=== PATIENT | female | born 1990 | race Hispanic/Latino ===

== ENCOUNTER 2017-05-24 05:42 | Emergency (ER) | payer BC ==
--- NOTE | 2017-05-24 06:23 | ED PDOC ---
HPI: Allergic Reaction Time Seen by Provider: 05/24/17 06:01 Chief Complaint (Nursing): Allergic Reaction Chief Complaint (Provider): Allergic reaction History Per: Patient History/Exam Limitations: no limitations Onset/Duration Of Symptoms: Mins Current Symptoms Are (Timing): Gone Now Context: Food Possible Cause: Food Associated Symptoms: Other (sensations in mouth) Home/EMS Treatment: Epi-pen Additional Complaint(s): The pt is a 27yo female, no known PMHX, presents to the ED for evaluation s/p and episode of a mild allergic reaction that occurred prior to arrival. 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 Pt states these initial symptoms were similar to her past allergic reaction so she used an epi- pen prior to arrival. Pt reports her symptoms were resolved after the use of epi -pen and denies any associated tongue or throat swelling, chest pain, shortness of breath. Pt offers no additional medical complaints. Past Medical History Reviewed: Historical Data, Nursing Documentation, Vital Signs Vital Signs: Last Vital Signs Temp 98.7 F 05/24/17 05:50 Pulse 75 05/24/17 05:50 Resp 17 05/24/17 05:50 BP 119/56 L 05/24/17 05:50 Pulse Ox 98 05/24/17 05:50 - Medical History PMH: No Chronic Diseases - Surgical History Surgical History: No Surg Hx - Family History Family History: States: No Known Family Hx - Social History Current smoker - smoking cessation education provided: No Alcohol: None Drugs: Denies - Home Medications Home Medications: Ambulatory Orders Medication Instructions Recorded Epinephrine HCl [Epipen 0.3 mg MR PRN PRN #1 unit 05/24/17 Auto-Injector] predniSONE [Prednisone] 40 mg PO DAILY #8 tab 05/24/17 - Allergies Allergies/Adverse Reactions: Allergies Allergy/AdvReac Type Severity Reaction Status Date / Time nut - unspecified Allergy ANGIOEDEMA Verified 05/24/17 07:31 [place] nut Allergy ANAPHYLAXIS Uncoded 05/24/17 07:34 Review of Systems ROS Statement: Except As Marked, All Systems Reviewed And Found Negative ENT: Positive for: Other (irritation in mouth and tongue due to a mild allergic reaction). Negative for: Mouth Swelling, Throat Swelling Cardiovascular: Negative for: Chest Pain Respiratory: Negative for: Shortness of Breath Skin: Negative for: Rash Physical Exam - Reviewed Nursing Documentation Reviewed: Yes Vital Signs Reviewed: Yes - Physical Exam Appears: Positive for: Non-toxic, No Acute Distress Head Exam: Positive for: ATRAUMATIC, NORMAL INSPECTION, NORMOCEPHALIC Skin: Positive for: Normal Color, Warm, Dry. Negative for: Rash Eye Exam: Positive for: Normal appearance, EOMI, PERRL ENT: Positive for: Normal ENT Inspection Neck: Positive for: Normal, Supple Cardiovascular/Chest: Positive for: Regular Rate, Rhythm Respiratory: Positive for: Normal Breath Sounds. Negative for: Accessory Muscle Use, Respiratory Distress Neurologic/Psych: Positive for: Alert, Oriented. Negative for: Motor/Sensory Deficits - ECG O2 Sat by Pulse Oximetry: 98 (RA) Pulse Ox Interpretation: Normal Disposition - Clinical Impression Clinical Impression: Allergic reaction - Patient ED Disposition Is Patient to be Admitted: Transfer of Care - Disposition Disposition: Transfer of Care Disposition Time: 07:00 Condition: IMPROVED Additional Instructions: follow up with your primary doctor in 1-2 days take benadryl ever 6 hours as needed return to the ED with any worsening or concerning symptoms Prescriptions: Epinephrine HCl [Epipen Auto-Injector] 0.3 mg MR PRN PRN #1 unit PRN Reason: Anaphylaxis predniSONE [Prednisone] 40 mg PO DAILY #8 tab Instructions: Food Allergy (ED), General Allergic Reaction (ED) Forms: [employer] (Sammarinese) Patient Signed Over To: Samantha Chung Y Handoff Comments: Pending re-evaluation and final disposition. Medical Decision Making Medical Decision Making: Time: 05 Impression: Mild allergic reaction without angioedema or anaphylactic shock Plan: -- Benadryl 25 mg PO -- Pepcid 20 mg PO -- Prednisone 60 mg PO --Reassess Time: 07 Patient to be signed out to Dr. Chung pending re-evaluation and final disposition. Scribe Attestation: Documented by Blanquita Hdez acting as a scribe for Юлия Barajas MD Provider Scribe Attestation: All medical record entries made by the Scribe were at my direction and personally dictated by me. I have reviewed the chart and agree that the record accurately reflects my personal performance of the history, physical exam, medical decision making, and the department course for this patient. I have also personally directed, reviewed, and agree with the discharge instructions and disposition.
[2017-05-24 06:26] VITALS: BP 119/56; PULSE 75; RESP 17; TEMP 98.7; O2SAT 98
--- NOTE | 2017-05-24 07:14 | ED PDOC ---
- ECG O2 Sat by Pulse Oximetry: 98 (RA) Pulse Ox Interpretation: Normal Medical Decision Making Medical Decision Makin:00 Patient signed out to me by Юлия Barajas MD pending reevaluation and final disposition. 10:28 reevaluation Patient states he is feeling better and symptoms resolved. Patient is ready for discharge. pt denies sob or rash dx allergic reaction rx prednisone epipen benadrul Scribe Attestation: Documented by Anaya Wilson, acting as a scribe for Juliet Singh MD. Provider Scribe Attestation: All medical record entries made by the Scribe were at my direction and personally dictated by me. I have reviewed the chart and agree that the record accurately reflects my personal performance of the history, physical exam, medical decision making, and the department course for this patient. I have also personally directed, reviewed, and agree with the discharge instructions and disposition. Disposition Counseled Patient/Family Regarding: Studies Performed, Diagnosis, Need For Followup, Rx Given - Clinical Impression Clinical Impression: Allergic reaction - POA Present On Arrival: None - Disposition Disposition: Routine/Home Disposition Time: 09:45 Condition: IMPROVED Additional Instructions: follow up with your primary doctor in 1-2 days take benadryl ever 6 hours as needed return to the ED with any worsening or concerning symptoms Prescriptions: Epinephrine HCl [Epipen Auto-Injector] 0.3 mg MR PRN PRN #1 unit PRN Reason: Anaphylaxis predniSONE [Prednisone] 40 mg PO DAILY #8 tab Instructions: Food Allergy (ED), General Allergic Reaction (ED) Forms: [employer] (Eritrean)
== END 2017-05-24 11:55 | disposition home or self-care (01) ==
LOC: H.ER 05:42
DX: T78.40XA Allergy, unspecified, initial encounter (principal)

== ENCOUNTER 2017-09-18 18:47 | Emergency (ER) | payer BC ==
[2017-09-18 19:00] VITALS: BP 123/60; PULSE 75; RESP 16; TEMP 97; O2SAT 100
[2017-09-18] MEDS ORDERED: Absorbable Gelatin Sponge Size 12-7 TP ONE (19:04)
[2017-09-18] MEDS ORDERED: Absorbable Gelatin Sponge Size 12-7 ONE (19:07)
--- NOTE | 2017-09-18 19:36 | ED PDOC ---
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 Patient states that earlier today she was using a knife and accidentally cut her left thumb, and was unable to stop the bleeding prompting the visit. Of note, tetanus not up to date. Past Medical History Reviewed: Historical Data, Nursing Documentation, Vital Signs Vital Signs: Last Vital Signs Temp 97.0 F L 09/18/17 18:58 Pulse 75 09/18/17 18:58 Resp 16 09/18/17 18:58 BP 123/60 09/18/17 18:58 Pulse Ox 100 09/18/17 18:58 - Medical History PMH: No Chronic Diseases - Surgical History Surgical History: No Surg Hx - Family History Family History: States: Unknown Family Hx - Social History Current smoker - smoking cessation education provided: No Ex-Smoker (has not smoked in the last 12 months): No Alcohol: None Drugs: Denies - Home Medications Home Medications: Ambulatory Orders Medication Instructions Recorded Epinephrine HCl [Epipen 0.3 mg MR PRN PRN #1 unit 05/24/17 Auto-Injector] predniSONE [Prednisone] 40 mg PO DAILY #8 tab 05/24/17 - Allergies Allergies/Adverse Reactions: Allergies Allergy/AdvReac Type Severity Reaction Status Date / Time nut - unspecified Allergy ANGIOEDEMA Verified 05/24/17 07:31 [place] nut Allergy ANAPHYLAXIS Uncoded 05/24/17 07:34 Review of Systems ROS Statement: Except As Marked, All Systems Reviewed And Found Negative Constitutional: Negative for: Fever Musculoskeletal: Positive for: Hand Pain (left thumb) Physical Exam - Reviewed Nursing Documentation Reviewed: Yes Vital Signs Reviewed: Yes - Physical Exam Extremity: Positive for: Other (left thumb with superficial nonpulsitile bleeding avulsion, no nail involvement) - ECG O2 Sat by Pulse Oximetry: 100 - Progress ED Course And Treament: Wound was irrigated, normal saline was used, and gel form dressing was set in place. Medical Decision Making Medical Decision Making: Time: --19:04 Impression: --Thumb laceration Plan: --Gelatin Sponge 12-7 --Tetanus/Reduced Dipht/Acell Pe Reassess -- Scribe Attestation: Documented by Bernard Nugent acting as a scribe for ELVIN Hester Disposition - Clinical Impression Clinical Impression: Skin avulsion - Patient ED Disposition Is Patient to be Admitted: No - Disposition Disposition: Routine/Home Disposition Time: 19:20 Condition: STABLE Instructions: Skin Avulsion (ED) Forms: [employer] (Romansh) Print Language: ARMENIAN
== END 2017-09-18 19:39 | disposition home or self-care (01) ==
LOC: H.ER 18:47
DX: S61.012A Laceration without foreign body of left thumb without damage to nail, initial encounter (principal); W26.0XXA Contact with knife, initial encounter; Y92.89 Other specified places as the place of occurrence of the external cause